=== PATIENT | female | born 1950 | race Caucasian/White ===

== ENCOUNTER 2016-08-31 17:14 | Emergency (ER) | payer BC, OTHER ==
[~2016-08-31] VITALS: Ht 167.6 cm; Wt 58.0 kg
[2016-08-31 17:18] VITALS: Ht 167.6 cm; Wt 58.0 kg
--- NOTE | 2016-08-31 19:18 | RADRPT ---
PROCEDURE: XR Wrist. CLINICAL INDICATION: Left wrist and hand pain, fall TECHNIQUE: AP, lateral and oblique views of the left wrist were performed. COMPARISON: No prior studies are available for comparison. 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 There is also absence of the first, second, and third digits. The fourth and fifth digits appear pa rtially fused. There is no evidence of acute fracture of the visualized osseous structures. Visualized soft tissues are grossly unremarkable. IMPRESSION: 1. No radiographic evidence of acute osseous abnormality. 2. 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 RPTAT: UU .Adam Lemus MD, MD Date Time Electronically viewed and signed by .Adam Lemus MD, on 08/31/2016 19:18 .K/
--- NOTE | 2016-08-31 19:20 | RADRPT ---
PROCEDURE: XR hand CLINICAL INDICATION: Left wrist and hand pain, fall TECHNIQUE: AP, lateral and oblique views of the left hand were performed. COMPARISON: No prior studies are available for comparison. FINDINGS: There is a comminuted likely acute fracture of the fifth metacarpal neck with slight volar angulatio n. 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 There is also absence of the first, second, and third digits. The fourth and fifth digits appear pa rtially fused. Visualized soft tissues are grossly unremarkable. IMPRESSION: 1. Comminuted likely acute fracture of the fifth metacarpal neck with slight volar angulation. 2. 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 RPTAT: UU .Adam Lemus MD, Date Time Electronically viewed and signed by .Adam Lemus MD, on 08/31/2016 19:19 .K/
[2016-08-31] MEDS ORDERED: IBUP-1542 PO (19:47)
[2016-08-31] MEDS ORDERED: HYDR-906 PO (19:47)
[2016-08-31 20:09] VITALS: BP 125/99; PULSE 70; RESP 18; TEMP 98
--- NOTE | 2016-08-31 20:34 | ERD ---
ER Documentation Chief Complaint Date/Time DATE: 08/31/16 TIME: 20:33 Chief Complaint LT HAND , LT WRIST PAIN S/P FALL ON 08/19/16 HPI This is a 65-year-old female presents to the ER because she fell and she landed on her left hand. Patient states that this happened on August 17 however she thought it would get better. Patient states that he has continued and now her hand is swollen. Patient is complaining of hand and wrist pain. Pain is constant and severe. It is worse whenever she tries to move her hand or wrist. She has not tried anything for the pain. 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 ROS 12 point review of systems was done, all negative except per HPI. Medications Home Meds Active Scripts Ibuprofen* (Motrin*) 600 Mg Tab, 600 MG PO Q6, #30 TAB Prov:JASMEET CAMERON C 08/31/16 Hydrocodone/Acetaminophen ([place] 5-325 Tablet) 1 Each Tablet, 1 TAB PO Q6H Y for PAIN, #15 TAB Prov:JASMEET CAMERON 08/31/16 Allergies Allergies: Coded Allergies: No Known Allergy (Unverified , 08/31/16) PMhx/Soc Hx Miscellaneous Medical Probl: Yes (DM) Hx Alcohol Use: No Hx Substance Use: No Hx Tobacco Use: No Physical Exam Vitals Vital Signs Date Time Temp Pulse Resp B/P Pulse Ox O2 Delivery O2 Flow Rate FiO2 08/31/16 20:09 98.0 70 18 125/99 100 Room Air 08/31/16 17:18 97.8 85 18 107/64 98 Physical Exam GENERAL: The patient is well developed and appropriate for usual state of health , in no apparent distress. HEENT: Atraumatic. CHEST: Clear to auscultation bilaterally. There are no rales, wheezes or rhonchi. HEART: Regular rate and rhythm. No murmurs, clicks, rubs or gallops. EXTREMITIES: Right hand: ectrodactyly deformity. no swelling or pain. Left hand : ectrodactyly deformity, significant swelling and pain of 5th digit. normal extension and flexion of wrist, no snuffbox tenderness NEURO: Alert and oriented. SKIN: The skin is warm and dry. Procedures/MDM This is a 65-year-old female that presents to the ER with left hand and left wrist pain patient does have a fracture of the left hand at her fifth digit. Patient was put in a volar short arm splint. She was neurovascularly intact before and splint application. Patient was advised to urgently follow up with an orthopedic doctor as soon as possible. Patient will be sent home with ibuprofen and [place]. Patient my medical decision making with the patient and her partner they understand and agree with plan. Patient is to return to ER if symptoms worsen. Departure Diagnosis: Primary Impression: Hand fracture, left Condition: Stable Patient Instructions: Eloy Puckett'italo Additional Instructions: Call your primary care doctor TOMORROW for an appointment during the next 1-2 days.See the doctor sooner or return here if your condition worsens before your appointment time. JASMEET CAMERON Aug 31, 2016 20:34
== END 2016-08-31 20:20 | disposition home or self-care (01) ==
LOC: FTE 17:14
DX: S62.337A Displaced fracture of neck of fifth metacarpal bone, left hand, initial encounter for closed fracture (principal); E11.9 Type 2 diabetes mellitus without complications; W18.39XA Other fall on same level, initial encounter; Y92.9 Unspecified place or not applicable